=== PATIENT | male | born 1950 | race Caucasian/White ===

== ENCOUNTER 2023-05-29 05:36 | Inpatient (IN) ==
[2023-05-29] MEDS ORDERED: Tranexamic Acid 1 GM/100ML BAG 2,000 MG/200 ML BAG IV ONE (05:39)
[2023-05-29] MEDS ORDERED: ceFAZolin 2 GM PREMIX 2 GM/50 ML BAG ONE (05:39)
[2023-05-29 06:19] LABS: Rapid COVID-19 Molecular Undetected (Undetected)
[2023-05-29] MEDS: Lactated Ringers 1000 ml BAG 1,000 ML IV SCH ×2 (06:28→12:03)
[2023-05-29] MEDS ORDERED: ROPIVACAINE 5 MG/ML 30 ML BTL (0.5%) ONE (06:37)
[2023-05-29] MEDS ORDERED: fentaNYL 100 mcg/2 ml 50 MCG/ML VIAL ONE (06:50)
[2023-05-29] MEDS ORDERED: Rocuronium 50 mg VIAL 10 mg/ml 5 ml VIAL (50 mg) ONE (06:50)
[2023-05-29] MEDS ORDERED: Lidocaine 2% PF 5 ML VIAL ONE (06:51)
[2023-05-29] MEDS ORDERED: Midazolam 5 mg/5 ml VIAL 1 mg/ml 5 ml VIAL (5 mg) ONE (06:51)
[2023-05-29] MEDS ORDERED: Sterile Water for Inj 10 ML ONE (06:51)
[2023-05-29] MEDS ORDERED: Bupivacaine 0.5% PF 10 ML SDV VIAL INJ ONE (06:51)
[2023-05-29] MEDS ORDERED: Propofol 10 MG/ML 20 ML BTL ONE ×2 (06:51→09:08)
[2023-05-29] MEDS ORDERED: Phenylephrine IV 10 MG/ML 1 ml VIAL ONE (06:51)
[2023-05-29] MEDS ORDERED: Dexamethasone IV 4 MG/ML VIAL 1 ml VIAL ONE (06:51)
[2023-05-29] MEDS ORDERED: Ondansetron 4 mg VIAL 2 MG/ML 2 ml VIAL ONE (06:51)
[2023-05-29] MEDS ORDERED: Acetaminophen IV 1 GM/100ML 1,000 MG/100 ML BAG IV ONE (07:21)
[2023-05-29] MEDS ORDERED: Ondansetron 4 mg VIAL 2 MG/ML 2 ml VIAL IV PRN (07:43)
[2023-05-29] MEDS ORDERED: Magnesium Hydroxide LIQ 30 ML UDC PO PRN (07:43)
[2023-05-29] MEDS ORDERED: Lactulose 30 ml UDC PO PRN (07:43)
[2023-05-29] MEDS ORDERED: Ondansetron ODT 4 mg TAB 4 MG TAB PO PRN (07:43)
[2023-05-29] MEDS ORDERED: Morphine 2 MG/ML SYRINGE IV PRN (07:43)
[2023-05-29] MEDS ORDERED: HYDROmorphone 1 MG/1 ML SYRINGE IV PRN (09:41)
[2023-05-29] MEDS ORDERED: Naloxone 0.4 mg VIAL 0.4 mg/ml 1 ml VIAL IV PRN (09:41)
[2023-05-29] MEDS: Buffered Lidocaine 1% SYRIN 1 ml INTRADERM ONE (12:02)
[2023-05-29] MEDS: Vitamin THERAPEUTIC TAB PO SCH (12:03)
[2023-05-29] MEDS: Magnesium Hydroxide LIQ 30 ML UDC PO SCH (12:03)
[2023-05-29] MEDS: ceFAZolin 1 GM ADVAN 1 GM in NS 0.9% 50 ML 50 ML IVPB SCH (15:16)
[2023-05-29 15:49] VITALS: BP 130/81
== END 2023-05-29 17:00 | disposition home or self-care (01) | DRG 470 ==
LOC: AA 05:36 → SSU 07:43
PROVIDERS: ADMIT Orthopaedic Surgery Adult Reconstructive Orthopaedic Surgery; ATTEND Orthopaedic Surgery Adult Reconstructive Orthopaedic Surgery